=== PATIENT | female | born 1970 | race Caucasian/White ===

== ENCOUNTER 2017-03-25 21:40 | Emergency (ER) | payer BC ==
[~2017-03-25] VITALS: Ht 177.8 cm; Wt 76.2 kg
[~2017-03-25 21:40] MED LIST: BACLOFEN10 MG PO; CYCLOBENZAPRINE5 MG PO; KEFLEX500 MG PO; MACRODANTIN25 MG PO; OXYCODON-ACETA1 EAC2 PO; PYRIDIUM200 MG PO
[2017-03-25] MEDS ORDERED: ULTRAM50 MG PO (21:54)
== END 2017-03-25 23:11 | disposition home or self-care (01) ==
LOC: ED 21:40
DX: S93.402A Sprain of unspecified ligament of left ankle, initial encounter (principal); Z90.712 Acquired absence of cervix with remaining uterus; Z88.6 Allergy status to analgesic agent; Z88.1 Allergy status to other antibiotic agents; Z88.5 Allergy status to narcotic agent; Z88.8 Allergy status to other drugs, medicaments and biological substances; Z79.899 Other long term (current) drug therapy; W19.XXXA Unspecified fall, initial encounter
CPT/HCPCS: 73610; 99283

== ENCOUNTER 2021-04-25 18:14 | Emergency (ER) | payer OTHER ==
[~2021-04-25] VITALS: Ht 175.3 cm; Wt 75.7 kg
[~2021-04-25 18:14] MED LIST changes: +ESSENTIAL DAIL1 EACH PO; +FLONASE ALLERG9.9 ML NAS; +NABUMETONE750 MG PO; +PROAIR HFA8.5 GM INH; +SINGULAIR10 MG PO; +ULTRAM50 MG PO; +VALACYCLOVIR500 MG PO
--- OUTSIDE RECORDS SUMMARY | 2021-04-25 18:16 | XMS ---
PreManage Notification: FEDE [facility]VI [employer] Events No recent Security Events currently on file CRITERIA MET - [facility] PROVID[facility] JUSTIN GUERRA Physician Assistant Christiano ROBERSON PHONE: [phone] ERIKA HALL Current PHONE: Unknown Yi Saba Physician Assistant Christiano Damico PA-C PHONE: [phone] [facility] has no Care Guidelines for this patient. E.D. VISIT COUNT (12 MO.) 1 TOM Grier TOTAL 1 NOTE: Visits indicate total known visits. ED/UCC VISIT TRACKING (12 MO.) 04/25/2021 18:15 [facility] [place] TYPE: Emergency COMPLAINT: - DIARRHEA INPATIENT VISIT TRACKING (12 MO.) No inpatient visits to display in this time frame [email or web address]
[2021-04-25] MEDS ORDERED: ONDANSETRON ODT4 MG PO (18:53)
[2021-04-25] MEDS ORDERED: DICYCLOMINE HCL20 MG PO (18:53)
== END 2021-04-25 20:34 | disposition home or self-care (01) ==
LOC: ED 18:14
DX: K52.9 Noninfective gastroenteritis and colitis, unspecified (principal); Z87.891 Personal history of nicotine dependence; Z88.6 Allergy status to analgesic agent; Z88.5 Allergy status to narcotic agent; Z88.1 Allergy status to other antibiotic agents; Z79.899 Other long term (current) drug therapy; Z79.891 Long term (current) use of opiate analgesic
CPT/HCPCS: 80053; 81001; 83735; 85025; 96374; 99284-25; J2405; J7030